=== PATIENT | female | born 1985 | race Caucasian/White ===

== ENCOUNTER 2019-09-04 19:33 | Emergency (ER) | payer SELFPAY ==
[~2019-09-04] VITALS: Ht 175.3 cm; Wt 122.5 kg
--- NOTE | 2019-09-04 20:03 | NUR ---
Dr. Becker at bedside for MSE.
[2019-09-04] MEDS ORDERED: IBUPROFEN 600 MG TABLET ONE ×2 (20:14→20:15)
[2019-09-04] MEDS ORDERED: IBUPROFEN 600 MG TABLET PO ONE (20:15)
--- NOTE | 2019-09-04 20:22 | NUR ---
Xray at bedside.
--- NOTE | 2019-09-04 21:07 | NUR ---
Patient discharged to home in stable conditon. Written and verbal after care instructions given. Patient verbalizes understanding of instructions. Pt ambulated out of ER via wheelchair, crutches dispensed, gait training provided, no acute signs of distress, VSS, all belongings taken, assisted pt to car, no falls noted, to be driven home by friend via private vehicle.
[2019-09-04 21:12] VITALS: BP 139/76
== END 2019-09-04 21:13 | disposition home or self-care (01) ==
LOC: ER 19:33
DX: S93.402A Sprain of unspecified ligament of left ankle, initial encounter (principal); X50.1XXA Overexertion from prolonged static or awkward postures, initial encounter; Y93.89 Activity, other specified; Y92.89 Other specified places as the place of occurrence of the external cause; Y99.8 Other external cause status
CPT/HCPCS: 73610; A4663